=== PATIENT | female | born 1970 | race Caucasian/White ===

== ENCOUNTER 2020-02-20 00:36 | Inpatient (IN) | payer OTHER ==
[~2020-02-20] VITALS: Ht 172.7 cm; Wt 109.0 kg
[2020-02-20] MEDS: LABETALOL HCL 100 MG/20 ML VIAL IV ONE (01:00)
[2020-02-20] MEDS ORDERED: ALBUTEROL SULFATE 2.5 MG/3 ML NEBU NEB ONE (01:00)
--- NOTE | 2020-02-20 01:00 | NUR ---
Patient BIB Ra from [facility] found by patient's boyfriend unresponsive. Patient upon arrival only responsive to painful stimuli, pupils fix and dilated. Placed in room 4b.
[2020-02-20] MEDS ORDERED: ALBUTEROL SULFATE 2.5 MG/3 ML NEBU ONE (01:10)
[2020-02-20 01:30] LABS: BASOPHILS # (AUTO) 0.1 K/uL (0.0-8.0); BASOPHILS % (AUTO) 0.4 % (0.0-2.0); EOSINOPHILS # (AUTO) 0.1 K/uL (0.0-0.7); EOSINOPHILS % (AUTO) 0.3 % (0.0-7.0); HEMATOCRIT 48.6 % (31.2-41.9); HEMOGLOBIN 16.3 g/dL (10.9-14.3); LYMPHOCYTES % (AUTO) 19.4 % (20.5-51.5); MEAN CORPUSCULAR HEMOGLOBIN 30.2 uug (24.7-32.8); MEAN CORPUSCULAR HGB CONC 34 g/dL (32.3-35.6); MEAN CORPUSCULAR VOLUME 89.8 fL (75.5-95.3); MONOCYTES # (AUTO) 1.2 K/uL (2.0-10.0); NEUTROPHILS # (AUTO) 15.4 K/uL (1.8-8.9); NEUTROPHILS % (AUTO) 73.9 % (38.5-71.5); PLATELET COUNT (AUTO) 426 K/uL (179-408); RED BLOOD CELL COUNT(AUTO) 5.41 MIL/uL (3.63-4.92); WHITE BLOOD COUNT (AUTO) 20.8 K/uL (3.8-11.8)
[2020-02-20 01:42] LABS: CARBON DIOXIDE 27 mmol/L (21-32); CHLORIDE 104 mmol/L (98-107); CREATININE 0.9 mg/dL (0.6-1.3); GLUCOSE 189 mg/dL (74-106); POTASSIUM 3.7 mmol/L (3.5-5.1); UREA NITROGEN, BLOOD 15 mg/dL (7-18)
[2020-02-20] MEDS ORDERED: CEFTRIAXONE 1 G in IV DEXTROSE 5% 50 ML IV ONE (01:45)
[2020-02-20 01:47] LABS: ALANINE AMINOTRANSFERASE 199 U/L (14-59); ALKALINE PHOSPHATASE 133 U/L (50-136); ASPARTATE AMINOTRANSFERASE 108 U/L (15-37); BILIRUBIN,DIRECT 0.2 mg/dL (0.0-0.2); BILIRUBIN,TOTAL 0.4 mg/dL (0.2-1.0); TOTAL PROTEIN, SERUM 9.5 g/dL (6.4-8.2)
[2020-02-20 01:52] LABS: ETHANOL < 3 MG/DL (0-0)
[2020-02-20 01:54] LABS: ACETAMINOPHEN < 2.0 ug/mL (10-30)
[2020-02-20] MEDS ORDERED: levETIRAcetam IV 1,000 MG in IV DEXTROSE 5% 100 ML IV ONE (02:00)
[2020-02-20 02:04] LABS: THYROID STIMULATING HORMONE 2.584 mIU/mL (0.358-3.740)
--- NOTE | 2020-02-20 02:08 | NUR ---
Pt intubated by ED MD QUIROS at 0120 on settings of AC 20, 600, +5 and FIO2-100%. 7.[address] patent and secure (with [place] Fast) at approx. 23cm at the lip. Leger plugged into red outlet. Leger alarms are on and audible. Pt to be monitored throughout the duration of the shift.
[2020-02-20] MEDS ORDERED: levETIRAcetam 500 MG/5 ML VIAL IV ONE (02:16)
[2020-02-20] MEDS ORDERED: CEFTRIAXONE /D5W 50ML IVPB **ER PYXIS IV ONE (02:17)
--- NOTE | 2020-02-20 02:20 | NUR ---
Dr Orozco called [facility] for for possible transfer.
--- NOTE | 2020-02-20 02:30 | NUR ---
[facility] called back. Spoke to YUE who states neurologist unable to accept patient due to being "unsalvageable."
[2020-02-20 02:54] LABS: ABG BASE EXCESS -0.7 mmol/L; ABG HCO3 21.9 mmol/L; ABG PCO2 30.9 mmHg (35.0-45.0); ABG PH 7.468 (7.350-7.450); ABG PO2 316.2 mmHg (75.0-100.0); ABG SITE RIGHT BRACHIAL; ABG TOTAL HEMOGLOBIN 15.1 G/dL (12.0-16.0); COHb 1.2 % (0.5-1.5); MetHb 0.2 % (0.0-1.5); O2Hb 98.5 % (94.0-97.0); VENT MODE VENT - A/C; VT, ABG 600 mL
[2020-02-20] MEDS ORDERED: NOREPINEPHRINE BITARTRATE 4 MG/4 ML VIAL IV ONE (02:56)
[2020-02-20] MEDS ORDERED: NOREPINEPHRINE BITARTRATE 8 MG in IV NORMAL SALINE 242 ML IV PRN ×2 (03:00→11:00)
--- NOTE | 2020-02-20 04:23 | NUR ---
ALDAIR FROM [facility] CALLED FOR RESENT VITALS AND STATUS OF PATIENT , WHICH I INFORMED 139/98 BP/125HR/98% ON VENT AT 50% O2/97.8 TEMPERAL TEMP. SHE STATED THE SHE COULD STAY AND ASKED TO SPEAK TO RAYMUNDO THE FRONT ADMISSION CLOTH LAMINATING SUPERVISOR.
[2020-02-20] MEDS ORDERED: IV NS 1000 ML 1,000 ML IV PRN (04:30)
[2020-02-20] MEDS ORDERED: ACETAMINOPHEN 650 MG SUPP.RECT RC PRN (04:30)
[2020-02-20] MEDS ORDERED: ONDANSETRON 4 MG/2 ML VIAL IV PRN (04:30)
[2020-02-20] MEDS: IV NORMAL SALINE 500 ML BAG IV ONE ×2 (04:50→05:15)
[2020-02-20 05:27] LABS: *AMPHETAMINE, URINE POSITIVE (NEGATIVE); *CANNABINOID, URINE NEGATIVE (NEGATIVE); *COCCAINE, URINE NEGATIVE (NEGATIVE); *OPIATE, URINE NEGATIVE (NEGATIVE); *PHENCYCLIDINE SCREEN,URINE NEGATIVE (NEGATIVE)
[2020-02-20] MEDS ORDERED: DEXAMETHASONE SOD PHOSPHATE IV SCH ×2 (06:00)
[2020-02-20] MEDS ORDERED: NORMAL SALINE IV SCH ×2 (06:00)
[2020-02-20] MEDS ORDERED: MANNITOL 25% 12.5 G/50 ML VIAL IV ONE ×3 (06:31→12:01)
[2020-02-20] MEDS: MANNITOL 25% 12.5 G/50 ML VIAL IV SCH ×3 (06:45→18:27)
[2020-02-20] MEDS ORDERED: BENA20TA78 PO (06:52)
[2020-02-20] MEDS ORDERED: ASPI81TA31 PO (06:52)
[2020-02-20] MEDS ORDERED: HYDR25TA4 PO (06:52)
[2020-02-20] MEDS ORDERED: METO50TA16 PO (06:52)
[2020-02-20] MEDS ORDERED: ATOR20TA27 PO (06:52)
--- NOTE | 2020-02-20 08:01 | NUR ---
pt to go to CT with RN and RT
--- NOTE | 2020-02-20 09:53 | NUR ---
levo titrated up 0.01 mcg, but bp went up over 177/120 so titrated back down. levo now running at 0.06
--- NOTE | 2020-02-20 10:49 | NUR ---
parameter for noeepi drip provided by Dr. Rivero
--- NOTE | 2020-02-20 12:07 | NUR ---
PER PHARMACY RUN MANNITOL OVER 30 MINUTES
--- NOTE | 2020-02-20 12:15 | NUR ---
This SW was contacted by patient's physician Jess Choi, requesting assistance with finding responsible alliance party for the patient. Patient is a 49 year old female who is unresponsive. Patient was brought to the ED by paramedics. Patient is homeless and was residing at the [facility] in [address] Patient is currently not responsive, and therefore unable to provide information. SW contacted the [facility], and was then connecting with [facility]. JAYME spoke with Benita, , and requested contact information for the patient. Benita was able to provide the following contacts: Modesta, patient's daughter, lives in [place] [phone] and Jimbo Ruben, patient's friend, . SW to attempt to contact patient's daughter Modesta.
--- NOTE | 2020-02-20 12:41 | NUR ---
JAYME called patient's daughter Modesta, . Modesta was available and receptive to speaking with this JAYME. Modesta stated that she spoke with her mother, the patient, yesterday. JAYME stated that patient's physician would like to talk to Modesta, and Modesta stated she was receptive to this. JAYME informed Modesta that JAYME will provide Modesta's contact information to patient's physician, who will then contact Modesta. Modesta expressed understanding. JAYME then spoke with patient's physician Jess Choi, and provided Jess with patient's daughter Modesta's contact information, . Jess Choi to follow-up with Modesta.
--- NOTE | 2020-02-20 14:33 | NUR ---
MANOLOI: Pt's sister Roxie Pena, telephone # [phone].
[2020-02-20] MEDS: NORMAL SALINE IV SCH ×4 (16:23→21:11)
[2020-02-20] MEDS: DEXAMETHASONE SOD PHOSPHATE IV SCH ×4 (16:23→21:11)
--- NOTE | 2020-02-20 16:49 | NUR ---
levo titrated down to 0.04
[2020-02-20 19:05] VITALS: BP 143/112
--- NOTE | 2020-02-20 19:30 | NUR ---
PATIENT IN ROOM 4B INTUBATED WITH VENT SETTING AT A/C 18, TIDAL VOLUME 500, PEEP 5 AND O2 AT 60%. PATIENT BILATERAL PUPIL FIXED AND DILATED. NO RESPONSE TO PAINFUL STIMULI. HAS A SINGLE LUMEN MIDLINE ON RIGHT UPPER ARM PATENT AND 20G HEP LOCK ON RIGHT UPPER ARM PATENT. LEVOPHED INFUSING.
[2020-02-20] MEDS: PIPERACILLIN SODIUM/TAZOBACTAM 3.375 G in IV DEXTROSE 5% 50 ML IV SCH (21:19)
[2020-02-20] MEDS ORDERED: PIPERACILLIN/TAZOBACTAM/D5W 50 ML IV ONE (21:22)
[2020-02-20] MEDS ORDERED: VANCOMYCIN IV 200 ML ONE (21:23)
[2020-02-20] MEDS ORDERED: VANCOMYCIN IV 1,500 MG in IV DEXTROSE 5% 500 ML IV ONE (21:30)
[2020-02-21] MEDS ORDERED: MANNITOL 25% 12.5 G/50 ML VIAL IV ONE ×3 (00:45→12:26)
[2020-02-21] MEDS: MANNITOL 25% 12.5 G/50 ML VIAL IV SCH ×3 (00:45→12:35)
[2020-02-21] MEDS: PIPERACILLIN SODIUM/TAZOBACTAM 3.375 G in IV DEXTROSE 5% 50 ML IV SCH (02:56)
[2020-02-21] MEDS ORDERED: PIPERACILLIN/TAZOBACTAM/D5W 50 ML IV ONE (03:00)
[2020-02-21] MEDS: NORMAL SALINE IV SCH ×4 (03:52→11:30)
[2020-02-21] MEDS: DEXAMETHASONE SOD PHOSPHATE IV SCH ×4 (03:52→11:30)
--- NOTE | 2020-02-21 06:17 | NUR ---
PATIENT'S DAUGHTER CALLED, OSMAN DELATORRE AND GAVE CONTACT # .
--- NOTE | 2020-02-21 06:52 | NUR ---
INFORMATION SENT:FACE SHEET,24HRS,ER,HP,IMAGING,,PSF FAX TO:MARIELA HERNANDES [phone] FAX SENT BY SUSIE.
--- NOTE | 2020-02-21 06:55 | NUR ---
MANITOL IVPB COMPLETED.
[2020-02-21] MEDS ORDERED: VANCOMYCIN IV 1,000 MG in IV DEXTROSE 5% 250 ML IV SCH (08:00)
[2020-02-21] MEDS ORDERED: VANCOMYCIN IV 200 ML ONE (08:10)
--- NOTE | 2020-02-21 08:20 | NUR ---
PT RECEIVED ORALLY INTUBATED WITH A SIZE 7.0 ETT SECURED WITH ANCHOR-FAST APPROX. 23CM AT THE LIP. VENT PARAMETERS AND ALARMS CHECKED, ALARMS ARE AUDIBLE. PT IS ON A PACK VENT ON SETTINGS OF A/C 18, VT 600, 50% FIO2, PEEP +5. PT IS TOLERATING VENT SETTINGS WELL, NO RESP. DISTRESS NOTED. NO GAG REFLEX NOTED. PT IS TACHYCARDIC, RN IS AWARE. BVM AT BEDSIDE. VENT PLUGGED INTO RED OUTLET. SUCTION PRN. WILL CONTINUE TO MONITOR.
--- NOTE | 2020-02-21 08:54 | NUR ---
Daughter, Modesta, called to talk about end-of-life decisions. Jess marina/CB -- informed. Also advised her that [id number], she will wait to treat based on previous.
[2020-02-21] MEDS ORDERED: PIPERACILLIN SODIUM/TAZOBACTAM 3.375 G in IV DEXTROSE 5% 50 ML IV SCH (09:00)
[2020-02-21 10:02] LABS: BASOPHILS % (AUTO) 0.2 % (0.0-2.0); HEMATOCRIT 49.8 % (31.2-41.9); HEMOGLOBIN 16.1 g/dL (10.9-14.3); LYMPHOCYTES # (AUTO) 0.5 K/uL (20.0-40.0); LYMPHOCYTES % (AUTO) 2.7 % (20.5-51.5); MEAN CORPUSCULAR HEMOGLOBIN 29.9 uug (24.7-32.8); MEAN CORPUSCULAR HGB CONC 32 g/dL (32.3-35.6); MEAN CORPUSCULAR VOLUME 92.5 fL (75.5-95.3); MONOCYTES % (AUTO) 5.1 % (0.0-11.0); NEUTROPHILS # (AUTO) 17.2 K/uL (1.8-8.9); PLATELET COUNT (AUTO) 345 K/uL (179-408); RED BLOOD CELL COUNT(AUTO) 5.39 MIL/uL (3.63-4.92); WHITE BLOOD COUNT (AUTO) 18.7 K/uL (3.8-11.8)
[2020-02-21 10:23] LABS: CREATININE 1.6 mg/dL (0.6-1.3); MAGNESIUM 2.5 mg/dL (1.8-2.4); POTASSIUM 3.8 mmol/L (3.5-5.1)
[2020-02-21 10:24] LABS: THYROID STIMULATING HORMONE 4.221 mIU/mL (0.358-3.740)
--- NOTE | 2020-02-21 11:35 | NUR ---
TITRATED UP -- levophed to 0.08 mcg/kg/min. from 0.05
[2020-02-21] MEDS ORDERED: IV 1/2NS 1000 ML 1,000 ML IV PRN (11:45)
--- NOTE | 2020-02-21 12:15 | NUR ---
TITRATED UP -- Levophed to 0.15 mcg/kg/min from 0.08
--- NOTE | 2020-02-21 13:05 | NUR ---
TITRATED UP -- Levophed to 0.3 mcg/kg/min from 0.15
--- NOTE | 2020-02-21 13:35 | NUR ---
TITRATED UP -- Levophed to 0.4 mcg/kg/min from 0.3
[2020-02-21] MEDS ORDERED: POTASSIUM PHOSPHATE MM 7.5 MMOL in IV NORMAL SALINE 97.5 ML IV SCH (14:00)
[2020-02-21] MEDS ORDERED: EPINEPHRINE 1:10,000 1 MG/10 ML DISP.SYRIN IV ONE (14:55)
[2020-02-21] MEDS ORDERED: ETOMIDATE 20 MG/10 ML VIAL IV ONE (14:55)
[2020-02-21] MEDS ORDERED: SODIUM BICARBONATE 8.4% 50 MEQ/50 ML DISP.SYRIN IV ONE (14:55)
--- NOTE | 2020-02-21 15:07 | NUR ---
Pt's pulse accelerated to 170's, BP became unatainable, SPO2 dropped to 84%. Then pulse dropped to 90 and raised back up before becoming ventricular around 40 and going asystole. Abdoul Baker was called and resuscitation efforts were started. NISREEN called at 1456.
== END 2020-02-21 14:56 | disposition expired | DRG 720 ==
LOC: ER 00:40 → TRANSITION 04:30
PROVIDERS: ADMIT Nurse Practitioner Acute Care; ATTEND Nurse Practitioner Acute Care
PROC: 5A12012 Performance of Cardiac Output, Single, Manual (ICD-10-PCS; principal; 2020-02-20)
PROC: 5A1945Z Respiratory Ventilation, 24-96 Consecutive Hours (ICD-10-PCS; principal; 2020-02-20)
PROC: 0BH18EZ Insertion of Endotracheal Airway into Trachea, Via Natural or Artificial Opening Endoscopic (ICD-10-PCS; principal; 2020-02-20)
DX: A41.9 Sepsis, unspecified organism (principal); I61.5 Nontraumatic intracerebral hemorrhage, intraventricular; G92 Toxic encephalopathy; E87.2 Acidosis; I10 Essential (primary) hypertension; E87.0 Hyperosmolality and hypernatremia; N17.0 Acute kidney failure with tubular necrosis; R40.2342 Coma scale, best motor response, flexion withdrawal, at arrival to emergency department; R40.2122 Coma scale, eyes open, to pain, at arrival to emergency department; R40.2222 Coma scale, best verbal response, incomprehensible words, at arrival to emergency department; R65.21 Severe sepsis with septic shock; I63.9 Cerebral infarction, unspecified; R29.717 NIHSS score 17; G93.5 Compression of brain; Z59.0 Homelessness
CPT/HCPCS: 36415; 36600; 70030-TC; 70450; 71045; 83605; 83735; 84100; 84443; 85025; 85730; 87040; 93005; 94002; 94003; G0378; G0480; J0171; J0696; J1100; J1953; J2150; J2543; J3370; J3490; J7050; J7060